=== PATIENT | male | born 2000 | race Caucasian/White ===

== ENCOUNTER 2024-03-28 14:20 | Outpatient (AMB) | payer OTHER, SELFPAY ==
--- NOTE | 2024-03-28 14:43 | MHC.PC.OV ---
Vital Signs 03/28/24 14:45 Height 5 ft 11.65 in Weight 157 lb BMI 21.5 BP 120/78 Blood Pressure Location Lt brachial Position Sitting Pulse 85 Pulse Source Pulse Oximeter Temp 97.3 F Temp Source Temporal Artery Scan Pulse Oximetry (%) 95 Oxygen Delivery Method Room Air Intake Visit Reasons: establish care Intake Note: Patient is a new patient here to establish care for Wellness visit. Transferring care from unknown. Medical records have not been requested and have not received. Prison Officer Required: No Ring Barker Operator: Not Required per policy Accompanied by: Self / Same As Patient Allergies No Known Allergies Allergy (Verified 03/28/24 14:56) Medication List - Last Reconciled 03/28/24 by Kendall Pacheco PA-C No Known Home Meds Tobacco use date assessed: 03/28/24 Dental Screening Dental Screen Date: 03/28/24 Did you have a dental visit in the last 12 months?: Yes Did you have a dental problem in the last 6 months where you did not have access to dental care?: No Was dental information given to patient?: Patient has dentist HPI establish care HPI Details The patient is a 23-year-old male presenting today for a new patient visit.. He also request for medical clearance after a previous occurrence of elevated liver enzymes. 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 He was noted to have a elevated liver enzyme during a previous blood draw, which the patient attributes to alcohol consumption before the test. The patient's liver enzyme levels were reported as significantly elevated, with AST at 548 and ALT at 210, which returned to normal levels on subsequent reevaluation. No prior chest pain, shortness of breath, family history of heart disease, or cancer diagnosis was reported. [facility] Surgical History History of testicular surgery Social History (Updated 03/28/24 @ 14:59 by Kendall Pacheco PA-C) Housing: House Alcohol intake: current Alcohol intake frequency: a few times a month Alcohol type: beer Patient Tobacco Use Status: Never used Tobacco e-Cigarette/Vaping Use: Never Used Second Hand Smoke Exposure: No service: Yes ([employer]) Current occupational status: employed Current occupation: [employer] Cognitive needs: No Hearing needs: No Vision needs: No Questionnaire PHQ-9 Over the last 2 weeks, how often have you been bothered by any of the following problems? 1. Little interest or pleasure in doing things: not at all 2. Feeling down, depressed, or hopeless: not at all 3. Trouble falling or staying asleep, or sleeping too much: not at all 4. Feeling tired or having little energy: not at all 5. Poor appetite or overeating: not at all 6. Feeling bad about yourself - or that you are a failure or have let yourself or your family down: not at all 7. Trouble concentrating on things, such as reading the newspaper or watching television: not at all 8. Moving or speaking so slowly that other people could have noticed. Or the opposite - being so fidgety or restless that you have been moving around a lot more than usual: not at all 9. Thoughts that you would be better off or of hurting yourself in some way: not at all Total score: 0 Depression Screening Interpretation: Negative Depression Screening Done: Yes 57716 - PHQ-9 Billing: Yes Source: Developed by Drs. Vlad Gibson, Blanca Hensley, Odin Tidwell and colleagues, with an educational ryan from [employer]. Thrive Questionnaire Date Thrive assessed: 03/22/24 I am a: Patient What is your living situation today?: I have a steady place to live Within the past 12 months, did the food you bought not last and you didn't have the money to get more?: Never true Within the past 12 months, did you worry whether your food would run out before you got money to buy more?: Never true Do you have trouble paying for medicines?: No Do you have trouble getting transportation to medical appointments?: No Do you have trouble paying your heating and electricity bill?: No Do you have trouble taking care of your child, family member or friend?: No Do you have trouble with day-to-day activities such as bathing, preparing meals, shopping, managing finances, etc.?: No Are you currently unemployed and looking for a job?: No Are you interested in more education?: No Please select the resources that you would like help with: None Currently or been in a relationship where the following occur: No concerns reported THRIVE Score: 0 AUDIT C Alcohol Use Questionnaire (AUDIT-C) 1. How often do you have a drink containing alcohol?: 2-4 times a month 2. How many drinks containing alcohol do you have on a typical day when you are drinking?: 1 or 2 3. How often do you have six or more drinks on one occasion?: Never Total Score: 2 VERO-7 AMB Questionnaire VERO-7 Date VERO - 7 assessed: 03/28/24 Feeling nervous, anxious, or on edge: 0 = Not at all Not being able to stop or control worryin = Not at all Worrying too much about different things: 0 = Not at all Trouble relaxin = Not at all Being so restless that it is hard to sit still: 0 = Not at all Becoming easily annoyed or irritable: 0 = Not at all Feeling afraid as if something awful might happen: 0 = Not at all Total VERO-7 score (0-4 normal; 5-9 mild; 10-14 moderate; 15-21 severe): 0 Source: Developed by Drs. Vlad Gibson, Blanca Hensley, Odin Tidwell and colleagues, with an educational ryan from [employer]. VERO-7 Assessment Billing VERO-7 Assessment Tool: VERO-7 Assessment 01228 Review of Systems Const Denies headache(s) Eyes Denies loss of vision ENT Denies vertigo, Denies dizziness, Denies headache(s) and Denies sore throat Card Denies chest pain, Denies leg edema and Denies lightheadedness Resp Denies cough, Denies hemoptysis and Denies wheezing GI Denies abdominal pain, Denies melena, Denies constipation, Denies diarrhea and Denies vomiting Denies dysuria, Denies urinary frequency and Denies urinary urgency Musc Denies arthralgias, Denies joint swelling, Denies numbness and Denies tingling Neuro Denies Abnormal speech present, Denies behavioral changes, Denies vertigo, Denies dizziness, Denies headache(s), Denies loss of vision, Denies memory loss, Denies numbness and Denies tingling Psych Denies anxiety, Denies behavioral changes, Denies depression, Denies memory loss and Denies panic attacks Rolo/Lymph Denies easy bleeding and Denies easy bruising Aller/Immun Denies wheezing Physical exam (Primary Care) Vital Signs: Last Vital Signs Temp 97.3 F 03/28/24 14:45 Pulse 85 03/28/24 14:45 BP 120/78 03/28/24 14:45 Pulse Ox 95 03/28/24 14:45 Oxygen Delivery Method Room Air 03/28/24 14:45 BMI result Body Mass Index 21.5 Tobacco/Smoking Status: Tobacco use Status Tobacco use date assessed 03/28/24 03/28/24 14:51 Patient Tobacco Use Status Never used Tobacco 03/28/24 14:59 e-Cigarette/Vaping Use Never Used 03/28/24 14:59 PHQ-9: PHQ-9 Score PHQ-9: Total score 0 03/28/24 14:59 Depression Screening Interpretation: Negative Thrive Assessment: Date of Thrive Assessment Date Thrive assessed 03/22/24 03/28/24 14:51 Currently or been in a relationship where the following occur: No concerns reported Const General: healthy appearing, no acute distress, alert and awake Nutritional Appearance: well nourished Orientation/consciousness: oriented to person, oriented to place and oriented to time HENMT Ears: TM's normal bilaterally General nose exam: Normal nasal mucous membranes and turbinates present Eyes Conjunctivae: conjunctivae normal Sclerae: sclerae normal Pupils: Equal, round and reactive pupils present Neck Neck: Yes no lymphadenopathy and Yes no JVD Thyroid: Thyroid normal Carotids: no bruits Resp Effort & Inspection: normal respiratory effort and not tachypneic Auscultation: no crackles, no rales, no rhonchi and no wheezes Cardio Rate: regular rate Rhythm: regular rhythm Heart sounds: no murmurs and normal S1 and S2 GI Palpation (GI): Soft to palpation, nontender, no hepatomegaly and no splenomegaly Auscultation: normal bowel sounds Skin General skin exam: no rashes or lesions noted and dry skin Neuro General: oriented to person, oriented to place and oriented to time Cranial nerves: Yes Equal, round and reactive pupils present Speech: No Abnormal speech present Gait exam (Neuro): Normal gait present Motor exam (neuro): no tremor noted Extrem Right upper extremity: full ROM Left upper extremity: full ROM Right lower extremity: full ROM; no edema Left lower extremity: full ROM; no edema Psych Mental Status: mental status grossly normal Speech and movement: Normal speech and movement present Affect: normal affect Attitude: cooperative Thought process: Normal thought process present Coding Level of Care Code New Pt Level 4 (07519) Diagnoses Elevated liver enzymes R74.8 Screening for diabetes mellitus (DM) Z13.1 Additional Codes PHQ-9 - 92655 - PHQ-9 Billing: Yes ([id number]) VERO-7 Assessment Billing - VERO-7 Assessment Tool: VERO-7 Assessment 38681 ([id number]) Assessment & Plan Assessment & Plan (1) Elevated liver enzymes: Code(s): R74.8 - Abnormal levels of other serum enzymes Category: Medical Plan: I discussed with the patient the resolution of his previously elevated liver enzymes and the importance of fasting prior to repeat testing. We reviewed the need for obtaining a clearance letter for the [employer], contingent upon normal laboratory findings He will be applying to be in the [employer] and needs to be medically cleared from a primary care physician. (2) Screening for diabetes mellitus (DM): Code(s): Z13.1 - Encounter for screening for diabetes mellitus Category: Medical Plan: As above
[2024-03-28 14:45] VITALS: BP 120/78; PULSE 85; TEMP 36.3; O2SAT 95; BMI 21.5
--- OUTSIDE RECORDS SUMMARY | 2024-03-28 15:36 | XMS_ITS | Encounter Summary ---
Author Organization [facility] Address [address] [place] [phone] Phone Care Team Providers Care Stitcher Tape Controlled Machine Name Role Phone Unavailable Primary Care Provider Unavailabl e Encounter Details Date Type Department Care Team (Late st Contact Info) Description 06/18/2014 Documentation [facility] [place] Family Medicine [address] [place], [place] [id number] Family Medicine, Physician [address], [place] [address] Social History Tobacco Use Types Packs/Day Years Used Date Smoking Tobacco: Never Assessed Sex and Gender Information Value Date Recorded Sex Assigned at Not on file Legal Sex Male 4:56 PM EDT Gender Identity Not on file Sexual Orientation Not on file documented as of this encounter Plan of Treatment Not on file documented as of this encounter Visit Diagnoses Not on filedocumented in this encounter
--- OUTSIDE RECORDS SUMMARY | 2024-03-28 15:36 | XMS_ITS | Clinical Summary ---
Author Organization [facility] Address [address] [place] [address] Care Team Providers Care Laboratory Animal Facility Supervisor Name Role Phone Patient, Has No Pcp Or Ref Primary Care Provider Unavailable Allergies No known active allergies Medications No known medications Active Problems No known active problems Resolved Problems Problem Noted Date Diagnosed Date Resolved Date Left-sided weakness 10/21/2022 10/23/19 23 Weakness 10/20/2022 10/22/2022 Assessment & Plan (10/20/2022 6:16 PM EDT): 22 year old male with no reported PMH. Presents with acute onset left sided weakness in the setting of recent strenuous exercise during training. NIH 3 for left sided drift and sensation deficit. TNK deferred by patient following risk benefit discussion. Given patient would be at risk for stroke due to presentation with strenuous exercise initially recommended load with 325 mg of Aspirin, 300 mg Plavix. Upon re-evaluation, the neurology team, thought that the etiology of presentation likely related to dehydration, exertional related fatigue with some functional component noted as well. Lower concern for stroke and no need for additional antiplatelet therapy. - If no improvement following 24 hours may obtain repeat CTH -Brain MRI -spot EEG Non-traumatic rhabdomyolysis 10/20/2022 10/22/2022 Assessment & Plan (10/20/2022 6:19 PM EDT): Pt presenting with CK of 1690, some exertional muscle pain, in the setting of dehydration and intense physical exercise. Concerning for exertional rhabdomyolysis. CK trending down. Received 1L of NS in the ED. 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 He denies any weakness with these past episodes and they have been decreasing in frequency, now happening every couple of months. He would have intact but altered consciousness during these episodes, no aura symptoms. He reports that he has not been formally evaluated for these issues and does not have any known associated diagnoses. He has a cousin who had unknown heart disease and multiple strokes as a high school student. -EKG -Telemetry monitoring -TTE Hyponatremia 10/20/2022 10/22/2022 Assessment & Plan (10/20/2022 6:11 PM EDT): Pt presented after intense physical training. He had a Na of 133, likely a result of hypovolemic hyponatremia. BUN/Cr of 21/1.18 with an unknown baseline. Pt received 1L of NS bolus in the ED. -Follow up BMP Social History Tobacco Use Types Packs/Day Years Used Date Smoking Tobacco: Never Smokeless Tobacco: Never Alcohol Use Standard Drinks/Week Comments Never 0 (1 standard drink = 0.6 oz pur e alcohol) Sex and Gender Information Value Date Recorded Sex Assigned at Male 10/24/2022 8:40 AM EDT Legal Sex Male 8:44 AM EDT Gender Identity Male 10/24/2022 8:40 AM EDT Sexual Orientation Not on file Last Filed Vital Signs Vital Sign Reading Time Taken Comments Blood Pressure 106/61 10/22/2022 3:28 AM EDT Pulse 60 10/22/2022 3:28 AM EDT Temperature 36.4 ??C (97.6 ??F) 10/22/2022 3:28 AM ED T Respiratory Rate 17 10/22/2022 3:28 AM EDT Oxygen Saturation 97% 10/22/2022 3:28 AM EDT Inhaled Oxygen Concentration - - Weight 77.1 kg (170 lb) 10/21/2022 4:15 AM EDT Height 185.4 cm (6' 1 ) 10/21/2022 4:15 AM EDT Body Mass Index 22.43 10/21/2022 4:15 AM EDT Plan of Treatment Health Maintenance Due Date Last Done Comments HIV Screening 1998 Hepatitis C Screening 1998 Varicella Vaccines (1 of 2 - 13+ 2-dose series) 10/04/2011 HPV Vaccines (1 - Male 3-dos e series) 2013 Hepatitis B Vaccines (1 of 3 - 19+ 3-dose series) 2017 DTaP,Tdap,and Td Vaccines (1 - Tdap) 2020 COVID-19 Vaccine (1 - 2023-2 5 season) 2023 Influenza Vaccine (#1) 2023 Alcohol/Substance Use Screening 02/07/2024 Depression Screening and Follow-Up 02/07/2024 Social Drivers of Health Veronica ual Screening 02/07/2024 RSV Vaccine (60+ years old a nd patients) (1 - 1-dose 75+ series) 2073 Pneumococcal Vaccine: Pediat scotty (0-5 Years) and At-Risk Patients (6-50 Years) Aged Out No longer eligible b ased on patient's age to complete this topic Insurance WORKERS COMPENSATION Advance Directives * Full Code (Latest Code Status on File) Date Activated Date Inactivated Comments 10/20/2022 2:45 PM 10/22/2022 2:10 PM Care Teams Laboratory Animal Facility Supervisor Relationship Specialty Start Date End Date Patient, Has No Pcp Or Ref DO NOT EDIT THIS RECORD VIA PROVIDER ON THE FLY PCP - General Cutlery Grinder 10/20/22
--- OUTSIDE RECORDS SUMMARY | 2024-03-28 15:36 | XMS_ITS | Encounter Summary ---
Author Organization [facility] Address [address] [place] [phone] Phone Care Team Providers Care Capacitor Inspector Name Role Phone Unavailable Primary Care Provider Unavailabl e Encounter Details Date Type Department Care Team (Late st Contact Info) Description 08/27/2009 Documentation [facility] [place] Family Medicine [address] [place], [place] [id number] Family Medicine, Physician [address], [place] [phone] Social History Tobacco Use Types Packs/Day Years [...]
--- OUTSIDE RECORDS SUMMARY | 2024-03-28 15:36 | XMS_ITS | Encounter Summary ---
Author Organization [facility] Address [address] [place] [phone] Phone Care Team Providers Care Cabinet Finisher Name Role Phone Unavailable Primary Care Provider Unavailabl e Encounter Details Date Type Department Care Team (Late st Contact Info) Description 09/26/2013 [place] [facility] [place] [address] [place], [place] [id number] Family Medicine, Physician [address], [place] [phone] Social History Tobacco Use Types Packs/Day Years [...]
--- OUTSIDE RECORDS SUMMARY | 2024-03-28 15:36 | XMS_ITS | Referral Summary ---
Author Organization [facility] Address [address] [place] [address] Care Team Providers Care Fisher Hoop Net Name Role Phone Patient, Has No Pcp [...] 10/21/2022 4:15 AM EDT Plan of Treatment Not on file Insurance WORKERS COMPENSATION Advance Directives * Full Code (Latest Code Status on File) Date Activated Date Inactivated Comments 10/20/2022 2:45 PM 10/22/2022 2:10 PM Care Teams Fisher Hoop Net Relationship Specialty Start Date End Date Patient, Has No Pcp Or Ref DO NOT EDIT THIS RECORD VIA PROVIDER ON THE FLY PCP - General Area Counselor 10/20/22
--- OUTSIDE RECORDS SUMMARY | 2024-03-28 15:36 | XMS_ITS | Encounter Summary ---
Author Organization [facility] Address [address] [place] [phone] Phone Care Team Providers Care Demonstrator Sales Name Role Phone Unavailable Primary Care Provider Unavailabl e Encounter Details Date Type Department Care Team (Late st Contact Info) Description 09/22/2016 Conversion Encounter [facility] - [address] [address] Social History Tobacco Use Types Packs/Day Years Used Date Smoking Tobacco: Never Comments:Never smoker Sex and Gender Information Value Date Recorded Sex Assigned at Not on file Legal Sex Male 4:56 PM EDT Gender Identity Not on file Sexual Orientation Not on file documented as of this encounter Plan of Treatment Not on file documented as of this encounter Visit Diagnoses Not on filedocumented in this encounter
--- OUTSIDE RECORDS SUMMARY | 2024-03-28 15:36 | XMS_ITS | Clinical Summary ---
Author Organization [facility] Address [address] [place] [phone] Phone Care Team Providers Care Habitat Management Coordinator Name Role Phone Unavailable Primary Care Provider Unavailabl e Immunizations Immunization Administration Dates Next Due DTaP 5 10/17/2002, 1,04/09/1999, 999,1998 H1N1 02/26/2009 HPV, Quadrivalent 06/06/2012,08/24/2011,06/06/19 12 Hep A, ped/adol 06/17/2014,06/12/2013 Hep B, ped/adol 01/11/2000,07/06/1999,04/09/1999 Hib (PRP-T) 01/11/2000, 0,02/04/1999, 999 IPV 10/17/2002, 1,02/04/1999, 999 Influenza Split 03/01/2010 Influenza, injectable, quadrivalent 12/09/2015 Influenza, injectable, trivalent 02/19/2008,01/06 Influenza, intranasal, quadrivalent 02/19/2015 MMR 10/17/2002,09/30/1999 Meningococcal Conj (Menactra) MCV4P 12/09/2015,0 06/06/2011 Pneumococcal Conjugate 05/16/2000,01/11/2000 Tdap 06/06/2011 Varicella 02/19/2008,09/30/1999 Family History Relation Name Status Comments Father Alive Father: Alive a nd well Mother Mother: Migrain es Other No family histo ry of *Heart Disease, Family history of *Sudden /VT under 55, Family history of Asthma, No family history of *CVA/Stroke, No family history of *Dental caries Sister Alive Sister: Alive a nd well Social History Tobacco Use Types Packs/Day Years Used Date Smoking Tobacco: Never Comments:Never smoker Sex and Gender Information Value Date Recorded Sex Assigned at Not on file Legal Sex Male 4:56 PM EDT Gender Identity Not on file Sexual Orientation Not on file Last Filed Vital Signs Vital Sign Reading Time Taken Comments Blood Pressure 121/77 01/18/2016 12:00 AM EST Pulse 88 12/09/2015 12:00 AM EDT Temperature 37.4 ??C (99.4 ??F) 01/18/2016 12:[address] Respiratory Rate - - Oxygen Saturation - - Inhaled Oxygen Concentration - - Weight 62.6 kg (138 lb) 01/18/2016 12:00 AM EST Height 180.8 cm (5' 11.2 ) 01/18/2016 12:[address] Body Mass Index 19.14 01/18/2016 12:00 AM EST Plan of Treatment Health Maintenance Due Date Last Done Comments DTaP,Tdap,and Td Vaccines (7 - Td or Tdap) 06/05/2021 06/06/2011, 10/17/2002, 05/16/2000, Additional history exists Influenza Vaccines (#1) 2023 12/09/19 16, 02/19/2015, 03/01/2010, Additional history exists COVID-19 Vaccine ( season) 2023 HIB Vaccines Completed 01/11/2000, 04/1999, 02/04/1999, Additional history exists Hepatitis B Vaccines Completed 01/11/2000, 07/06/1999, 04/09/1999 Pneumococcal Vaccine Completed 05/16/2000, 01/11/20 00 IPV Vaccines Completed 10/17/2002, 05/07, 02/04/1999, Additional history exists MMR Vaccines Completed 10/17/2002, 09/30/1999 Varicella Vaccines Completed 02/19/2008, 09/30/1999 HPV Vaccines Completed 06/06/2012, 08/06, 06/06/2011 Hepatitis A Vaccines Completed 06/17/2014, 06/13/19 14 Meningococcal Vaccine Completed 12/09/2015, 012 Men B Vaccine Aged Out No longer nikhil hooper based on patient's age to complete this topic
--- OUTSIDE RECORDS SUMMARY | 2024-03-28 15:36 | XMS_ITS | Clinical Summary ---
Author Organization [facility] Address [address] [place] [address] Phone Care Team Providers Care Hose Cementer Name Role Phone [facility] Unavailable Unavailable Reason for Visit and Chief Complaint New Patient Plan of Treatment No Plan of Treatment Recorded Assessments Includes: Assessments from this encounter No Assessments Recorded Medical Equipment - Implanted Devices Includes: Current Devices No Medical Equipment Recorded Medications Administered Includes: Administered Medications from this encounter No Administered Medications Recorded Results Includes: Results discussed during this encounter No Results Recorded For Specified Dates History of Present Illness Includes: History of Present Illness from this encounter No History of Present Illness Recorded Social History No Social History Recorded - Smoking Status Unknown Medical History Includes: Medical History addressed during this encounter No Medical History Recorded Family History Includes: Family History addressed during this encounter No Family History Recorded Review of Systems Includes: Review of Systems from this encounter No Review of Systems Recorded Mental Status Includes: Mental Status from this encounter No Mental Status Recorded Functional Status Includes: Functional Status from this encounter No Functional Status Recorded Physical Exam Includes: Physical Exam from this encounter No Physical Exam Recorded Insurance Includes: Active Insurance Policies Plan Name Member ID Group # Subscriber Relationship Effect kelvin Dates 1 - Prime [id number] Mike Simpson Self Clinical Notes Includes: Clinical Notes from this encounter No Clinical Notes Recorded
--- OUTSIDE RECORDS SUMMARY | 2024-03-28 15:36 | XMS_ITS | Continuity of Care Document ---
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 It does not include entries that were removed or entered in error. Problem Status Onset Date Problem Type Date of Resolution Comments Source No Known Problems Active Condition 1586V-YH-LYN- 59th QBB-OPZTY-Bet malick Medications Combined list of outpatient medications from Department of Defense and Veterans Affairs facilities.Medications provided include 1) outpatient medications from the last 15 months, and 2) patient-reported medications. Medication Details Route Status Patient Instructions Prescription Expires Prescription Number Last Dispense Date Ordering Provider Order Date Order Qty Source Acetaminoph en Extra Strength Gelcaps 500 mg 2 tab(s), Oral, every 6 hr, PRN pain (mild), # 24 tab(s), 0 total refill(s ), Maintena nce, Pharmacy : [facility] Oral (given by mouth) Ordered 24.0 0117A-A F-ASU-5 [facility] CETIRIZINE HCL (cetirizine HCl), 10 MG, TABLET, ORAL, 'S LAB, 500 ea. BOTTLE Active [id number] 2023 90 Pharmac y Data Transac tion Service Facilit y Cleocin T 1% topical gel 1 appl(s), Topical, BID, # 60 g, 0 total refill(s ), Maintena nce, dispense 2 tubes due to TDY, Pharmacy : [facility] Topica l (on the skin) Complet ed 10/02/2021 60.0 0117A-A F-ASU-5 9 [facility] clindamycin -benzoyl peroxide 1%-5% topical gel clindamy lisa-uri oyl peroxide 1%-5% topical gel Start Date: 04/06/20 Stop Date: 10/02/21 Status: Complete d Complet ed 10/02/2021 No Facilit y Access doxycycline hyclate 100 mg oral capsule 1 cap(s), Oral, BID, # 14 cap(s), 0 total refill(s ), Acute, 09/17/21 12:00:00 AM CDT, Pharmacy : [facility] Oral (given by mouth) Complet ed 09/17/2021 14.0 0117A-A F-ASU-5 [facility] ibuprofen 800 mg oral tablet 1 tab(s), Oral, every 8 hr, PRN pain (mild), # 24 tab(s), 0 total refill(s ), Sarahy ilaileen, Pharmacy : [facility] Oral (given by mouth) Ordered 24.0 0117A-A F-ASU-5 [facility] PENICILLIN V POTASSIUM (PENICILLIN V POTASSIUM), 500 MG, TABLET, ORAL, [employer] PHARMA L, 500 ea. BOTTLE Active [id number] 4 2023 30 Pharmac y Data Transac tion Service Facilit y Valtrex 1 g oral tablet 1 tab(s), Oral, BID, # 14 tab(s), 0 total refill(s ), Acute, 09/11/21 12:00:00 AM CDT, Pharmacy : [facility] Oral (given by mouth) Complet ed 09/11/2021 14.0 0117A-A F-ASU-5 [facility] Allergies, Adverse Reactions, Alerts Combined list of allergies from Department of Defense and Veterans Affairs facilities. It does not include entries that were removed or entered in error. Substance Category Reaction Severity Reaction type Status Date Reported Comments Source No Known Allergies Drug allergy (disorder) active 04/24/2018 [place] [address] Immunizations Combined list of available immunizations from the Department of Defense and Veterans Affairs facilities. Immunization Series Date Given Administered By Site Reaction Lot Number CVX Code Drug Manager Technical Training Status Comments Source Influenza, injectable, quadrivalent, preservative free [id number] (SKB) complet ed Influenza , injectabl e, quadrival ent, preservat kelvin free DoD influenza, injectable, quadrivalent, contains preservative 4 2020 [id number] [facility] influenza , injectabl e, quadrival ent, contains preservat kelvin DoD COVID Vaccine Moderna 2020 [id number] complet ed COVID Vaccine Moderna 07/17/20 Given Ambulat ory Pharmac y SARS-COV-2 (COVID-19) vaccine, mRNA, spike protein, LNP, preservative free, 100 mcg or 50 mcg dose 2 2020 [id number] Moderna [employer] Inc. (MOD) complet ed SARS-COV- 2 (COVID-19 ) vaccine, mRNA, spike protein, LNP, preservat kelvin free, 100 mcg or 50 mcg dose DoD COVID Vaccine Moderna 2020 [id number] 207 complet ed COVID Vaccine Moderna 06/19/20 Given Ambulat ory Pharmac y SARS-COV-2 (COVID-19) vaccine, mRNA, spike protein, LNP, preservative free, 100 mcg or 50 mcg dose 1 2020 [id number] 207 Moderna [employer]. (MOD) complet ed SARS-COV- 2 (COVID-19 ) vaccine, mRNA, spike protein, LNP, preservat kelvin free, 100 mcg or 50 mcg dose DoD human papilloma virus vaccine, quadrivalent 0 2019 62 () Not Given human papilloma virus vaccine, quadrival ent DoD influenza, injectable, quadrivalent- pf 2019 [id number] 150 Seqirus complet ed influenza , injectabl e, quadrival ent-pf 12/27/19 Given Ambulat ory Pharmac y Influenza, injectable, quadrivalent, preservative free 1 2019 [id number] 150 Seqirus (SEQ) complet ed Influenza , injectabl e, quadrival ent, preservat kelvin free DoD hepatitis B adult vaccine 2019 [id number] 43 GlaxoSmithKli ne complet ed hepatitis B adult vaccine 02/15/19 Given Ambulat ory Pharmac y hepatitis B vaccine, adult dosage 3 2019 [id number] Smithine (SKB) complet ed hepatitis B vaccine, adult dosage DoD influenza, injectable, quadrivalent- pf 2018 [id number] 150 complet ed influenza , injectabl e, quadrival ent-pf 12/05/18 Given Ambulat ory Pharmac y Influenza, injectable, quadrivalent, preservative free 1 2018 150 Transcribed (TRS) complet ed Influenza , injectabl e, quadrival ent, preservat kelvin free DoD varicella virus vaccine 2018 [id number] Merck & Company Inc complet ed varicella virus vaccine 06/11/18 Given Ambulat ory Pharmac y hepatitis B pediatric/ado lescent 2018 [id number] 08 GlaxoSmithKli ne complet ed hepatitis B pediatric /adolesce nt 06/11/18 Given Ambulat ory Pharmac y hepatitis B vaccine, pediatric or pediatric/ado lescent dosage 1 2018 [id number] 08 SmithKline (SKB) complet ed hepatitis B vaccine, pediatric or pediatric /adolesce nt dosage DoD varicella virus vaccine 1 2018 [id number] 21 Merck (MSD) complet ed varicella virus vaccine DoD varicella virus vaccine 2018 [id number] 21 Merck & Company Inc complet ed varicella virus vaccine 04/24/18 Given Ambulat ory Pharmac y hepatitis B pediatric/ado lescent 2018 [id number] 08 GlaxoSmithKli ne complet ed hepatitis B pediatric /adolesce nt 04/24/18 Given Ambulat ory Pharmac y measles/mumps /rubella virus vaccine 2018 [id number] 03 Merck & Company Inc complet ed measles/m umps/rube lla virus vaccine 04/24/18 Given Ambulat ory Pharmac y measles, mumps and rubella virus vaccine 1 2018 [id number] 03 Merck (MSD) complet ed measles, mumps and rubella virus vaccine DoD hepatitis B vaccine, pediatric or pediatric/ado lescent dosage 1 2018 [id number] 08 SmithKline (SKB) complet ed hepatitis B vaccine, pediatric or pediatric /adolesce nt dosage DoD varicella virus vaccine 1 2018 [id number] 21 Merck (MSD) complet ed varicella virus vaccine DoD influenza, injectable, quadrivalent- pf 2018 [id number] 150 GlaxoSmithKli ne complet ed influenza , injectabl e, quadrival ent-pf 04/19/18 Given Ambulat ory Pharmac y meningococcal A,C,Y,W-135 (MCV4P) 2018 [id number] 114 sanofi pasteur complet ed meningoco ccal A,C,Y,W-1 35 (MCV4P) 04/19/18 Given Ambulat ory Pharmac y poliovirus vaccine, inactivated 2018 10 sanofi pasteur complet ed polioviru s vaccine, inactivat ed 04/19/18 Given Ambulat ory Pharmac y adenovirus vaccine, live 2018 [id number] 143 Teva Pharmaceutica complet ed adenoviru s vaccine, live 04/19/18 Given Ambulat ory Pharmac y tetanus, diphtheria, acellular pertu is 2018 [id number] 115 Lexity mo complet ed tetanus, diphtheri a, acellular pertussis 04/19/18 Given Ambulat ory Pharmac y poliovirus vaccine, inactivated 1 2018 10 Sanofi Pasteur (PMC) complet ed polioviru s vaccine, inactivat ed DoD meningococcal polysaccharid e (groups A, C, Y and W-135) diphtheria toxoid conjugate vaccine (MCV4P) 1 2018 [id number] 114 Sanofi Pasteur (PMC) complet ed meningoco ccal polysacch aride (groups A, C, Y and W-135) diphtheri a toxoid conjugate vaccine (MCV4P) DoD tetanus toxoid, reduced diphtheria toxoid, and acellular pertu is vaccine, adsorbed 1 2018 [id number] 115 AorTx (SKB) complet ed tetanus toxoid, reduced diphtheri a toxoid, and acellular pertussis vaccine, adsorbed DoD Adenovirus, type 4 and type 7, live, oral 1 2018 [id number] 143 [facility] (BRR) complet ed Adenoviru s, type 4 and type 7, live, oral DoD Influenza, injectable, quadrivalent, preservative free 1 2018 [id number] 150 AorTx (SKB) complet ed Influenza , injectabl e, quadrival ent, preservat kelvin free DoD measles virus vaccine 0 2018 05 () Not Given measles virus vaccine DoD mumps virus vaccine 0 2018 07 () Not Given mumps virus vaccine DoD hepatitis A vaccine, adult dosage 0 2018 52 () Not Given hepatitis A vaccine, adult dosage DoD Results Combined list of recent chemistry, hematology and other laboratory results from Department of Defense and Veterans Affairs, ranging from 15 months to all on record, depending upon the facility. Order Name Results Value Reference Range Date Interpretation Specimen Comments Source Infectiou s Disease Herpes Simplex 1 IgG Negative 2 *NA* (09/04/21 4:29 PM) 09/04 Interpretiv e Data: Negative: No HSV-1 IgG antibodies detected. Patient is presumed not to have had a previous HSV-1 infection. Equivocal: Equivocal result: obtain an additional sample for re-testing. Reactive: IgG antibody to HSV-1 detected. The performance of this test has not been established for us in a pediatric population, neonates, or immunocompr omised patients. This test is not, in and of itself, diagnostic for herpes simplex infection and assay results should only be interpreted in the context of other laboratory findings and the total clinical presentatio n of the patient. Samples collected too early in the course of the infection may not have detectable levels of HSV IgG. These results cannot differentia te between recent and past infections, negative HSV-2 antibody results could be due to recent infections attributed to slow time to seroconvers ion of the gG-2 response. A positive result does not rule out primary or non-primary episodes. HSV serology cannot distinguish genital from non-genial infections. False positive results may occur. Repeat testing or testing with a different device may be indicated in some settings e.g., patients with low likelihood of HSV infection. For performance or methodology questions, please contact Immunology department at [phone]. [id number] [facility] Infectiou s Disease Herpes Simplex 2 IgG Negative 3 *NA* (09/04/21 4:29 PM) 09/04 Interpretiv e Data: Negative: No HSV-2 IgG antibodies detected. Patient is presumed not to have had a previous HSV-2 infection. Equivocal: Equivocal result: obtain an additional sample for re-testing. Reactive: IgG antibody to HSV-2 detected The performance of this test has not been established for us in a pediatric population, neonates, or immunocompr omised patients. This test is not, in and of itself, diagnostic for herpes simplex infection and assay results should only be interpreted in the context of other laboratory findings and the total clinical presentatio n of the patient. Samples collected too early in the course of the infection may not have detectable levels of HSV IgG. These results cannot differentia te between recent and past infections, negative HSV-2 antibody results could be due to recent infections attributed to slow time to seroconvers ion of the gG-2 response. A positive result does not rule out primary or non-primary episodes. HSV serology cannot distinguish genital from non-genial infections. False positive results may occur. Repeat testing or testing with a different device may be indicated in some settings e.g., patients with low likelihood of HSV infection. For performance or methodology questions, please contact Immunology department at [phone]. [id number]-R [facility] Molecular Infectiou s Disease GC NAAT Negative (09/04/21 2:48 PM) 09/04 N 0117A-A F-ASU-5 9th [facility] [place] Molecular Infectiou s Disease Chlamydia NAAT Positive *ABN* (09/04/21 2:48 PM) 09/04 A 0117A-A F-ASU-5 9th [facility] [place] Urinalysi s UA Micro Ind? Not Indicate d *NA* (09/04/21 2:48 PM) 09/04 0117A-A F-ASU-5 9th [facility] [place] Urinalysi s UA Color Yellow *NA* (09/04/21 2:48 PM) 09/04 0117A-A F-ASU-5 9th [facility] [place] Urinalysi s UA Clarity Clear (09/04/21 2:48 PM) 09/04 N 0117A-A F-ASU-5 9th [facility] [place] Urinalysi s UA Glucose Negative (09/04/21 2:48 PM) 09/04 N 0117A-A F-ASU-5 9th [facility] [place] Urinalysi s UA Bili Negative (09/04/21 2:48 PM) 09/04 N 0117A-A F-ASU-5 9th [facility] [place] Urinalysi s UA Ketones Negative (09/04/21 2:48 PM) 09/04 N 0117A-A F-ASU-5 9th [facility] [place] Urinalysi s UA Spec Dalton <=1.005 1.003 - 1.030 09/04 0117A-A F-ASU-5 9th [facility] [place] Urinalysi s UA Blood Negative (09/04/21 2:48 PM) 09/04 N 0117A-A F-ASU-5 9th [facility] [place] Urinalysi s UA pH 6.5 1 (09/04/21 2:48 PM) 5.0 - 7.0 09/04 N Interpretiv e Data: Normal Low = 5 Normal High = 7 Review High = >=7.5 0117A-A F-ASU-5 9th [facility] [place] Urinalysi s UA Protein Negative (09/04/21 2:48 PM) 09/04 N 0117A-A F-ASU-5 9th [facility] [place] Urinalysi s UA Urobilinoge n 0.2 E.U./dL 0.2 - 1.0.. 09/04 N 0117A-A F-ASU-5 9th [facility] [place] Urinalysi s UA Nitrite Negative (09/04/21 2:48 PM) 09/04 N 0117A-A F-ASU-5 9th [facility] [place] Urinalysi s UA Leuk Esterase Negative (09/04/21 2:48 PM) 09/04 N 0117A-A F-ASU-5 9th [facility] [place] Vital Signs Combined list of inpatient and outpatient Vital Signs from Department of Defense and Veterans Affairs, ranging from 12 months to all on record, depending upon the facility. Vital Sign Value Date Comments Source Peripheral Pulse Rate 64 bpm 09/04/2021 22:19:00 8976L-OO-GDW-59th [facility] Respiratory Rate 16 br/min 09/04/2021 22:19:00 3353R-EM-YUL-59th [facility] Systolic Blood Pressure 139 mm[Hg] 09/04/2021 22:19:00 3614M-RE-VZN-59th [facility] Diastolic Blood Pressure 74 mm[Hg] 09/04/2021 22:19:00 2411Q-IU-RRN-59th [facility] Mean Arterial Pressure, Calc 96 mm[Hg] 09/04/2021 22:19:00 1486D-MM-NCW -59th [facility] Temperature Temporal Artery 36.9 Elisabeth 07/13/2021 19:46:00 5644A-HZ-ZUR -59th [facility] Systolic Blood Pressure 129 mm[Hg] 07/13/2021 19:46:00 1989E-OV-NFJ-59th [facility] Diastolic Blood Pressure 79 mm[Hg] 07/13/2021 19:46:00 9972Y-XA-FYL-59th [facility] Peripheral Pulse Rate 102 bpm 07/13/2021 19:46:00 4392T-DY-EFH-59th [facility] Respiratory Rate 18 br/min 07/13/2021 19:46:00 2152I-MF-TJN-59th [facility] Peripheral Pulse Rate 66 bpm 09/04/2021 21:25:00 3634K-PF-CRL-59th [facility] Respiratory Rate 16 br/min 09/04/2021 21:25:00 8559J-MK-MNW-59th [facility] Systolic Blood Pressure 133 mm[Hg] 09/04/2021 21:25:00 2427W-DW-BOX-59th [facility] Diastolic Blood Pressure 83 mm[Hg] 09/04/2021 21:25:00 0311U-ZQ-OXP-59th [facility] Mean Arterial Pressure, Calc 100 mm[Hg] 09/04/2021 21:25:00 2029M-SC-PZD -59th [facility] Temperature Temporal Artery 36.8 Elisabeth 09/04/2021 18:30:00 7439F-CQ-KIZ -59th IMS-KUHKR-Rqzjixlg Systolic Blood Pressure 148 mm[Hg] 09/04/2021 18:30:00 4338R-FR-GSN-59th DSB-HCJKE-Lwwnyuvm Diastolic Blood Pressure 96 mm[Hg] 09/04/2021 18:30:00 5352D-BN-QDY-59th RWP-KKLFW-Ldnejeph Peripheral Pulse Rate 81 bpm 09/04/2021 18:30:00 9515I-KM-RKM-59th HPA-NJFMI-Yklqijfw Respiratory Rate 16 br/min 09/04/2021 18:30:00 2710V-ZN-XDR-59th UFU-LITLK-Bdfjibjv Temperature Temporal Artery 36.6 Elisabeth 10/02/2021 23:55:00 7677U-UA-AOV -59th EAN-EJAFD-Vqmijcgb Systolic Blood Pressure 161 mm[Hg] 10/02/2021 23:55:00 5450H-RQ-LSJ-59th AXT-IDACB-Ugvcibtg Diastolic Blood Pressure 82 mm[Hg] 10/02/2021 23:55:00 1300I-SB-PAT-59th NSW-EBUUW-Xukmrpke Peripheral Pulse Rate 96 bpm 10/02/2021 23:55:00 8887R-RW-COR-59th HNR-LQUKI-Pejfucxn Respiratory Rate 16 br/min 10/02/2021 23:55:00 7318B-TF-CSI-59th LVB-UAIFA-Ozwvvbgf Encounters Combined list of: 1) Encounters from Department of Veterans Affairs facilities going backup to the last 18 months, not all VA inpatient encounters are included; 2) Encounters from the Department of Defense facilities going backup to 280 months. Location Location Details Encounter Type Encounter Number Reason For Visit Attending Provider ADM Date DC Date Status Disposition Source [place] [address](Hea ring Conservat ion, BMT) OUTPATIENT [id number] JACEK PITT 04/23 Released w/o Limitations [facility] [place] [place] [address](H earing Conserv ation, BMT) [place] [address]([facility] Stanislav Jones) OUTPATIENT [id number] Notes Entered by: CAITLYN QUINTERO 24 Apr 2018 1303 ------- ------- ------- ------- -- Strep prophyl axis CAITLYN QUINTERO 04/24 [facility]ased w/o Limitations [facility] [place] [address] Alonso Jones) [employer] OUTPATIENT [id number] Notes Entered by: MEDHAT BUI SA 24 Jul 2018 1526 ------- ------- ------- ------- -- OUTPROC FRAN LU 07/24 Released w/o Limitations [facility] [employer]([facility]) [place] [address](Opt ometry Clinic, [facility]) OUTPATIENT [id number] ROUTINE EYE EXAM PK PORTER 10/01 [facility]ased w/o Limitations [facility] [place] [address](O ptometr y Clinic, [facility]) [place] [address](Robert MEJIA) OUTPATIENT [id number] [facility]/ [phone] JOHN RAMOS 10/18 Released w/o Limitations [facility] [place] [address]([facility],Delroy d) [place] [address](Elva teresa [facility] F) OUTPATIENT [id number] SICKLE CELL APRIL MURO 12/06 Released w/o Limitations [facility] [place] [address](Wanda putnam [facility] Team [facility]) [place] [address](Elva teresa Op_Med Team D,[facility]) TELE CONSULT [id number] Notes Entered by: ELI CHUNG 14 Dec 2018 1136 ------- ------- ------- ------- -- FCR/VAN CK F/U APPT E.RDahiana [id number] EC/CA PEDRO CARVALHO 12/14 Referred for Appointment [facility] [place] [address]([place] Op_Med Team D,[facility] ) [place] [address]([facility] kland Op_Med Team D,[facility]) TELE CONSULT [id number] Notes Entered by: NIDHI CASE 18 Dec 2018 1311 ------- ------- ------- ------- -- FCR/VAN CK FU ER CONCUSS ION PH# [phone] SILVIO/PEDRO JURADO 12/18 Referred for Appointment [facility] [place] [address]([place] [facility]Med Team D,[facility] ) [facility], [place] [address]([facility] kland Op_Med Team D,[facility]) TELE CONSULT [id number] Notes Entered by: MICHELLE GARNER 19 Dec 2018 0854 ------- ------- ------- ------- -- jordan fierro cb# [phone] PEDRO FORTE 12/19 Referred for Appointment [facility] [place] [address]([place] [facility] D,[facility] ) [place] [address]([facility] kland Op_Med Team A,[facility]) OUTPATIENT [id number] ER F/U CONCUSS ION ANYA ROBERTS 12/19 Released w/o Limitations [facility] [place] [address]([place] Op_Med Team A,[facility] ) [place] [address]([facility] kland Op_Med Team D,[facility]) TELE CONSULT [id number] Notes Entered by: ZINA ROMAN 25 Dec 2018 0729 ------- ------- ------- ------- -- FCR/VAN CK. Fu concuss ion. [facility] [id number]. MJW/CAM O ROBIN HERNANDEZ 12/25 Referred for Appointment [facility] [place] [address]([place] [facility]Med Team D,[facility] ) [place] [address]([place] [facility]Med Team [facility]) OUTPATIENT [id number] F/U HEAD CONCUSS ION [place] 01/14 [facility]/o Limitations [facility] [place] [address]([place] [facility]_Med Team D,[facility] ) [place] [address]([place] [facility] D,[facility]) OUTPATIENT [id number] 4 Wk F/U; LastSee n10Dec [place] 02/11 Released w/o Limitations [facility] [place] [address]([place] [facility] D,[facility] ) [place] [address](All ergy, [facility]) OUTPATIENT [id number] Notes Entered by: Kimmie DWYER 15 Feb 2019 1449 ------- ------- ------- ------- -- SARITHA ALANIZ 02/15 Released w/o Limitations [facility] [place] [address](A llergy, [facility]) [place] [address](Epi demiology Dis [facility]) TELE CONSULT [id number] Notes Entered by: Kimmie HOLLINS 11 Jun 2019 1003 ------- ------- ------- ------- -- Patient notific ation of COVID-1 9 Lab Results MICHAEL HOLLINS 06/10 [facility] [place] [address](E pidemio logy Dis [facility]) [facility], [place] [address]([facility] demiology Dis [facility]) TELE CONSULT [id number] Notes Entered by: Kimmie HOLLINS 11 Jun 2019 1220 ------- ------- ------- ------- -- Patient notific ation of [facility]-1 9 Lab Results MICHAEL HOLLINS 06/10 [facility] [place] [address](E pidemio logy [facility]) [place] [address]([facility]) TELE CONSULT [id number] Notes Entered by: RENAN POLLOCK 11 Jun 2019 1226 ------- ------- ------- ------- -- [facility]- 9 Lab result RENAN POLLOCK B 06/10 Released to Self Care [facility], [place] [address](E pidem logy [facility]) [place] [address]([place] Op[facility]Med Team D,[facility]) OUTPATIENT [id number] Headach e and Nausea NAL/DKH Phone:[phone] [place] 06/12 Released w/o Limitations [facility] [place] [address]([place] [facility] D,[facility] ) [place] [address]([place] [facility] D,[facility]) OUTPATIENT [id number] lump on neck, chills, sweats. CONTACT NUMBER: [id number] NAL-NR [place] 06/16 Released w/o Limitations [facility] Treatme nt Facilit y, [place] [address]([place] [facility]Med [facility] D,[facility] ) [place] [address]([place] [facility]) TELE CONSULT [id number] Notes Entered by: PEPITO PEARCE 25 Sep 2019 1309 ------- ------- ------- ------- -- MED REFILL [id number] G BOBBYShadia OLAF ANYA Kimmie 09/24 [facility] [place] [address](Wanda putnam Op_Med Team D,[facility] ) [place] [address](BOM C,Robert) OUTPATIENT [id number] MHA/AIR FORCE/C B#[id number] JOHN RAMOS 09/25 [facility] w/o Limitations [facility] [place] [address](B [facility] Medical [facility] Medicine [facility]) TELE CONSULT [id number] Notes Entered by: SUSAN VAN 30 Mar 2020 1613 ------- ------- ------- ------- -- Appt line - Patient calling to ASHLEY Irizarry 03/30 Other Not Elsewhere Classified [facility] Medical [facility](F light Medicin e Clinic) [address] [place] [address]([facility]) TELE CONSULT [id number] Notes Entered by: AMILCAR MOONEY 31 Mar 2020 1623 ------- ------- ------- ------- -- REHAN - Note about topical med CORY MOONEY I 03/31 Other Not Elsewhere Classified [facility] Medical Group(A [facility]) [facility] Medicine [facility]) OUTPATIENT [id number] CARL CORRAL 04/01 Released w/o Limitations [address] [place] [address](F light Medicin e [facility]) [place] [address](AFN G 104 Med Sq-FM) TELE CONSULT [id number] MORIS CRAWFORD 05/05 [facility] [place] [address](A FNG 104 Med Sq-FM) [facility]) OUTPATIENT [id number] Virtual [facility] DEVAN BRIANNA COURTNEY 09/01 Released w/o Limitations [address] [place] [address](A ctive [facility]) [place] [address]([facility]) OUTPATIENT [id number] TCON/PH A [employer] NEELIMA [phone] SARITHA URIAS 09/10 Released w/o Limitations [facility] [place] [address]([facility]) [place] [address](AFN G 104 Med Sq-FM) OUTPATIENT [id number] Notes Entered by: JANNET REBOLLAR 17 Apr 2021 1430 ------- ------- ------- ------- -- Audiogr am LEW DUARTE 04/17 Released w/o Limitations [facility] [place] [address](A FNG 104 Med Sq-FM) [place] [address](AFN G 104 Med Sq-FM) OUTPATIENT [id number] Notes Entered by: JANNET REBOLLAR 18 Apr 2021 1251 ------- ------- ------- ------- -- Audiogr am/PHAQ LEW DUARTE 04/18 Released w/o Limitations [facility] [place] [address](A FNG 104 Med Sq-FM) [place] [address](AFN G 104 Med Sq-FM) OUTPATIENT [id number] Notes Entered by: VAN SPEARS 09 Apr 2022 1547 ------- ------- ------- ------- -- GRZEGORZQ TRACY SPEARS 04/09 Released w/o Limitations [facility] [place] [address](A FNG 104 Med Sq-FM) 8203R-104 ARA Care Not Rendered [id number] 04/22 Discharge Disposition: Home or Self Care 8203R-1 04 G 8203R-104 MDG Between Visit [id number] 08/07 Discharge Disposition: Home or Self Care 8203R-1 04 G 8203R-104 MDG Between Visit [id number] 08/24 Discharge Disposition: Home or Self Care 8203R-1 04 G 8203R-104 MDG Between Visit [id number] 12/28 Discharge Disposition: Home or Self Care 8203R-1 04 G 8203R-104 G Between Visit [id number] 01/09 Discharge Disposition: Home or Self Care 8203R-1 04 MDG Procedures Combined list of: 1) Procedures from Department of Veterans Affairs facilities going back up to thelast 18 months, not all VA non-surgical procedures are included; 2) All procedures from the Department of Defense facilities. Procedure Procedure Type Code Date Perfomer Comments Sourc e WAIVER SERVICES; NOT OTHERWISE SPECIFIED (NOS) 2020 DoD PURE TONE AUDIOMETRY (THRESHOLD); AIR ONLY 2021 DoD BRIEF EMOTIONAL/BEHAVIORA L ASSESSMENT (EG, DEPRESSION INVENTORY, ATTENTION-DEFICIT/H YPERACTIVITY DISORDER [ADHD] SCALE), WITH SCORING AND DOCUMENTATION, PER STANDARDIZED INSTRUMENT 2020 DoD BRIEF COMM TECH-BASE SERV,E.G. VIRT CHK-IN,BY PHYS/OTH QUAL HCP,RPT E&M SERV,PROV TO EST PT,NOT ORIG FRM REL E/M SERV PROV W/IN PREV 7DAY NOR LEAD TO E/M SRV/PX W/IN NEXT 24HR/SOON ADIEL; 5-10 MIN DISC 2019 DoD PSYCHIATRIC DIAGNOSTIC EVALUATION WITH MEDICAL SERVICES 2019 [facility] ELECTROCARDIOGRAM, ROUTINE ECG WITH AT LEAST 12 LEADS; WITH INTERPRETATION AND REPORT 2019 DoD WAIVER SERVICES; NOT OTHERWISE SPECIFIED (NOS) 2019 DoD WAIVER SERVICES; NOT OTHERWISE SPECIFIED (NOS) 2019 DoD INJECTION, ONDANSETRON HCL, PER 1 MG 2019 DoD IMMUNIZATION ADMINISTRATION (INCLUDES PERCUTANEOUS, INTRADERMAL, SUBCUTANEOUS, OR INTRAMUSCULAR INJECTIONS); EACH ADDITIONAL VACCINE (SINGLE OR COMBINATION VACCINE/TOXOID) 2019 [facility] INFUSION, NORMAL SALINE SOLUTION , 1000 CC 2018 [facility] COUNSELING AND DISCUSSION REGARDING ADVANCE DIRECTIVES OR END OF LIFE CARE PLANNING AND DECISIONS, WITH PATIENT AND/OR SURROGATE 2018 [facility] INTRODUCTION OF NEEDLE OR INTRACATHETER, VEIN 2018 [facility] ADMINISTRATION OF PATIENT-FOCUSED HEALTH RISK ASSESSMENT INSTRUMENT (EG, HEALTH HAZARD APPRAISAL) WITH SCORING AND DOCUMENTATION, PER STANDARDIZED INSTRUMENT 2018 [facility] DETERMINATION OF REFRACTIVE STATE 2018 [facility] PURE TONE AUDIOMETRY (THRESHOLD); AIR ONLY 2018 [facility] Determination Of Refractive State Determination Of Refractive State 52042 2018 PORTER, SEE S [facility] Ophthalmological New Patient Start Comprehensive Care Ophthalmological New Patient Start Comprehensive Care 19669 2018 PORTER, SEE S [facility] Threshold Audiogram (Pure Tone) Threshold Audiogram (Pure Tone) 23069 2018 JACEK PITT [facility] Internet Med Svc Qual Nonps Healthcare Prof Up To 7 Days Estab Patient Internet Med Sv Qual [facility] Healthcare Prof Up To 7 Days Estab Patient 26281 JOHN RAMOS [facility] Preventive Medicine Administration Of Health Risk Questionnaire Patient-Focused Preventive Medicine Administration Of Health Risk Questionnaire Patient-Focused 03091 JOHN RAMOS [facility] Counseling and discu ion regarding advance directives or end of life care planning and decisions, with patient and/or surrogate (list separately in addition to code for appropriate evaluation and management service) ANYA ROBERTS [facility] Hepatitis B Vaccine (Active) Adult Dosage Hepatitis B Vaccine (Active) Adult Dosage 32501 DAMIAN DWYER [facility] Influenza Split Virus Vaccine IM Preserv Free 0.25mL Dosage Trivalent Influenza Split Virus Vaccine IM Preserv Free 0.25mL Dosage Trivalent 05895 DAMIAN DWYER [facility] Immunization Administration By Injection, One Vaccine Immunization Administration By Injection, One Vaccine 94617 DAMIAN DWYER [facility] Immunization Administration By Injection, Each Additional Vaccine Immunization Administration By Injection, Each Additional Vaccine 18323 DAMIAN DWYER [facility] Waiver services; not otherwise specified (NOS) CASSIA HILL [facility] Psychiatric Diagnostic Evaluation Comprehensive Examination Interactive Psychiatric Diagnostic Evaluation Comprehensive Examination Interactive 87627 MIGUEL JOSHI [facility] Brief communication technology-based service, e.g. virtual check-in, by a physician or other qualified health care profe rebekah who can report evaluation and management services, provided to an established patient, not originating from a related E/M service provided within the previous 7 days nor leading to an E/M service or procedure within the next 24 hours or soonest available appointment; 5-10 minutes of medical discu ion JOHN RAMOS [facility] Psychometric Emotional / Behavioral A e ment Psychometric Emotional / Behavioral Assessment 95583 CECILIA URIAS AUDIT-C (5), PCL-C (0) & PHQ-8 (0) [facility] Threshold Audiogram (Pure Tone) Threshold Audiogram (Pure Tone) 62347 MANFRED LOVE [facility] Psychometric Emotional / Behavioral A e ment Psychometric Emotional / Behavioral Assessment 87237 BRIANNA HARTMAN [facility] No data available for this section Ambulato ry Pharmacy Social History Combined list of available smoking, tobacco, and other social history from Department of Defense and Veterans Affairs facilities. Social History Type Response Date Comment Sour e Male 12/03/2020 Ambulatory Pha rmacy This section is an empty social history section. DoD Tobacco Exposure to Secondha nd Smoke: No. Never-cigarette user Cigarette use:. Never-other tobacco user (not cigarettes) Other Tobacco use:. Ambulatory Pharmacy Sexual Orientation Ambula tory Pharmacy Gender identity Ambulator y Pharmacy Assessment and Plan Combined list of future care activities from Department of Defense and Veterans Affairs facilities (e.g., assessment and plan notes, appointments, orders, and referrals). Additional future care activities may be listed in the Plan of Care section. Result Assessment and Plan Date Source Assessment and Plan No data available for this section 03/28/2024 Ambulatory Pharmacy Functional Status Combined list of recent functional and cognitive assessments recorded at Department of Defense and Veterans Affairs (VA).VA Functional [place] Measurement (FIM) Scale: 1 = Total Assistance (Subject = 0% +), 2 = Maximal Assistance (Subject = 25% +), 3 = Moderate Assistance (Subject = 50% +), 4 = Minimal Assistance (Subject = 75% +), 5 = Supervision, 6 = Modified [place] (Device), 7 = Complete [place] (Timely, Safely). Assessment Date/Time Source Assessment Type Assessment Skill Assessment Score Assessment Details No data available for this section
--- OUTSIDE RECORDS SUMMARY | 2024-03-28 15:36 | XMS_ITS | Clinical Summary ---
Author Organization [facility] Address [address] [place] [address] Phone Care Team Providers Care Gas Flow Regulator Name Role Phone [facility] Unavailable Reason for Visit and Chief Complaint New Patient Plan of Treatment Pending Tests Order Diagnosis Results Due Ordering P nabeel Follow Up - Appointment PRN Stress f racture, right foot, initial encounter for fracture 05/26/22 Tracie Roa PA-C Last Documented On 3 8:29AM ; [facility] In House X-Rays - X-Rays Foot, right, 3 views ([id number]) Stress fracture, right foot, initial encounter for fracture 05/28/22 Tracie Roa PA-C Last Documented On 3 8:29AM ; [facility] Assessments Includes: Assessments from this encounter No Assessments Recorded Medical Equipment - Implanted Devices Includes: Current Devices No Medical Equipment Recorded Medications Administered Includes: Administered Medications from this encounter No Administered Medications Recorded Vital Signs Includes: Vital Signs from this encounter Vital Name 05/26/2022 07:59A Blood Pressure Sitting (mmHg) 143/79 Pulse Rate-Sitting (bpm) 77 Temp-Temporal 97.2 Height (in) 73 Weight (lb) 170 Body Mass Index 22.4 Body Surface Area 2 Oxygen Saturation (%) 99 Last Documented: On 05/26/2022 8:00AM ; [facility] Results Includes: Results discussed during this encounter [...] Exam Includes: Physical Exam from this encounter Encounters Encounter Provider Location Date Check-In Time Check-Out Time Diagnosis New Patient [facility], 8:20AM 8:28AM Insurance Includes: Active Insurance Policies Plan Name Member ID Group # Subscriber Relationship Effect kelvin Dates - Prime [id number] Mike Simpson Self Clinical Notes Includes: Clinical Notes from this encounter * Progress note Date Encounter Last Documented by 05/26/2022 New Patient Last documented on 05/26/2022; 8:29 AM, Tracie Díaz; [facility], Reason For Visit Chief complaint: Atraumatic right foot pain Date of injury: Pain since 05/16/2022 History of Present Illness: Patient is a 21-year-old male who is training for [employer] and reports 10 days of right foot pain. He was evaluated at urgent care where x-rays were obtained suggestive of stress fracture. He was placed in a tall fracture boot and advised to minimize weightbearing and follow-up with orthopedics. He has been compliant. He states that since he has been wearing the boot he has had minimal pain. He has been running about 1 to 2 miles which is not out of the ordinary for him he has been running prior to the onset of pain as well. He denies numbness or tingling. He denies any twisting injuries or trauma. No other complaints at this time Physical exam: Well-appearing male in no acute distress found seated on the exam table. There is no erythema, ecchymosis, skin breaks or deformity noted throughout the right ankle or foot. I am unable to palpate davi to tenderness to palpation throughout the metatarsals. He has full range of motion of the ankle and foot. No pain with manipulation of the midfoot. Motor and sensory intact distally. Toes warm and well-perfused. Imaging: X-rays of the right foot reviewed today which demonstrate similar sclerotic bands on the fourth and fifth metatarsals consistent with impression from urgent care x-ray. I was unable to review the x-rays from the urgent care. There is no discrete cortical disruption or fracture. Impression: Stress reaction right fourth and fifth metatarsals Plan: - Weightbearing: Advance weightbearing as tolerated - Activity/Therapy: Activity modification to reduce pain, may slowly progress back into running if he remains pain free. Caution to avoid reinjury - Dressing/DME: May discontinue tall fracture boot. Continue to wear with supportive shoe - Pain control: Elevate affected extremity; apply ice to affected area; over the counter pain medication such as Tylenol or NSAID's - Follow up: As needed - X-ray at follow up: none Case discussed with Dr. Mcfadden Physical Findings - Vitals taken 05/26/2022 07:59 am BP-Sitting 143/79 mmHg Pulse Rate-Sitting 77 bpm Temp-Temporal 97.2 F Height 73 in Weight 170 lbs Body Mass Index 22.4 kg/m2 Body Surface Area 2 m2 Oxygen Saturation 99 % Plan StartCited - Stress fracture, right foot, initial encounter for fracture Follow Up/Appointment: PRN In House X-Rays/X-Rays: Foot, right, 3 views ([id number]) EndCited
--- OUTSIDE RECORDS SUMMARY | 2024-03-28 15:36 | XMS_ITS ---
Care Plan - [facility] Created on: March 28, 2024 Mike Simpson : 2000 Sex: Male Author Organization [facility] Address [address] [place] [address] Phone Care Team Providers Care Data Integration Architect Name Role Phone [facility], Unavailable Unavailable
--- OUTSIDE RECORDS SUMMARY | 2024-03-28 15:36 | XMS_ITS ---
Author Organization [facility] Address [address] [place] [address] Phone Care Team Providers Care Wet End Supervisor Name Role Phone [facility], Unavailable [phone] Plan of Treatment No Plan of Treatment Recorded Assessments Includes: Assessments for all patient encounters No Assessments Recorded Medical Equipment - Implanted Devices Includes: Current and historical Devices No Medical Equipment Recorded Medications Administered Includes: Administered Medications in patient's chart No Administered Medications Recorded Results Includes: Results from 03/28/2023 through 03/28/2024 No Results Recorded For Specified Dates History of Present Illness History of Present Illness not supported for this document type No History of Present Illness Recorded Social History No Social History Recorded - Smoking Status Unknown Medical History Includes: Medical History in patient's chart No Medical History Recorded Family History Includes: Family History in patient's chart No Family History Recorded Review of Systems Review of Systems not supported for this document type No Review of Systems Recorded Mental Status No Mental Status Recorded Functional Status No Functional Status Recorded Physical Exam Physical Exam not supported for this document type No Physical Exam Recorded Insurance Includes: Active Insurance Policies Plan Name Member ID Group # Subscriber Relationship Effect kelvin Dates 1 - Prime [id number] Mike Simpson Self Clinical Notes Includes: Signed Clinical Notes starting from 01/16/2022 No Clinical Notes Recorded
== END 2024-03-28 15:14 | disposition home or self-care (01) ==
PROVIDERS: PCP Physician Assistant; Visit Provider Physician Assistant
DX: R74.8 Abnormal levels of other serum enzymes (principal); Z13.1 Encounter for screening for diabetes mellitus

== ENCOUNTER → 2024-03-28 14:20 | Outpatient (BNVA) | payer OTHER, SELFPAY | PROVIDERS: PCP Physician Assistant; Visit Provider Physician Assistant | DX: R74.8 Abnormal levels of other serum enzymes (principal) | CPT/HCPCS: 96127; 99202 ==

== ENCOUNTER 2024-04-04 09:13 | Outpatient (REF) | payer OTHER, SELFPAY ==
[2024-04-04 09:59] LABS: Hematocrit 42.2 % (42.0-52.0); Hemoglobin 14.4 g/dl (14.0-18.0); Mean Corpuscular HGB Conc 34.1 g/dl (31.0-36.0); Mean Corpuscular Hemoglobin 29.9 pg (27.0-33.0); Mean Corpuscular Volume 87.6 fL (80.0-98.0); Mean Platelet Volume 9.6 fL (9.4-12.4); Platelet Count 193 X10*3/uL (160-400); Red Blood Count 4.82 X10*6/uL (4.60-5.80); White Blood Count 4.1 X10*3/uL (4.8-10.8)
[2024-04-04 10:37] LABS: Alanine Aminotransferase 16 U/L (0-40); Albumin Level 4.3 g/dL (3.5-5.0); Alkaline Phosphatase 59 U/L (39-117); Anion Gap 12 (12-20); Aspartate Amino Transferase 24 U/L (5-37); Bilirubin Total 0.3 mg/dL (0.0-1.0); Blood Urea Nitrogen 9 mg/dL (9-16); Calcium 9.2 mg/dL (8.4-10.2); Carbon Dioxide 27 mmol/L (22-29); Chloride 106 mmol/L (96-108); Estimated Glomerular Filt Rate > 60; Glucose Fasting 83 mg/dL (60-99); Potassium 3.9 mmol/L (3.3-5.1); Sodium 141 mmol/L (135-145); Total Protein 7.4 g/dL (6.5-8.0)
== END 2024-04-04 09:14 | disposition home or self-care (01) ==
LOC: HO.LAB 09:13
PROVIDERS: PCP Physician Assistant; Visit Provider Physician Assistant
DX: Z13.1 Encounter for screening for diabetes mellitus (principal)
CPT/HCPCS: 36415; 80053; 85027

== ENCOUNTER 2024-07-16 19:20 | Outpatient (REF) | payer OTHER, SELFPAY ==
--- NOTE | ~2024-07-16 | MR_ITS ---
EXAM: MRI of the right foot without contrast TECHNIQUE: Multiplanar multisequence MR imaging performed through the right foot. INDICATION: Intermittent foot pain, chronic PRIOR: None FINDINGS: Lisfranc ligament: The main Lisfranc ligament is intact. There is no joint diastases or widening. Soft tissues/Stephens's Neuroma: There is no evidence of Stephens's neuroma. There is no muscle edema, atrophy, or fatty streaking.. Metatarsophalangeal (MTP) joint and sesamoids of the great toe: Sesamoids demonstrate no marrow edema. The medial sesamoid is probably bipartite versus remotely fractured. Plantar plate is intact. Plantar plates & Lesser MTP joints: Plantar plates are intact. There are no degenerative changes. Bones/Marrow: On STIR sequences, there is high signal in the central distal end of the distal phalanx of the first digit, throughout the distal phalanx of the second digit, and centrally in the distal phalanx of the third digit, and distally in the fourth distal phalanx. There is also subtle increased signal on fluid sensitive sequences in the neck of the third metatarsal. On T1 imaging, there is subtle decreased signal in the same regions. There is no visible fracture line. MR/MR foot RT wo con IMPRESSION: Nonspecific marrow signal changes are present in the distal phalanges of the first, second, third, and fourth digit and third metatarsal neck. Signal could represent very mild bone bruise or atypical stress response. Correlate clinically to determine if symptoms are in these regions. If there are no symptoms in these regions, then the findings may be incidental. Electronically signed by: Demetrius Macias MD 07/17/2024 11:14 AM EDT
== END 2024-07-16 19:21 | disposition home or self-care (01) ==
LOC: HO.MRI 19:20
PROVIDERS: Visit Provider Physician Assistant
DX: M84.374S Stress fracture, right foot, sequela (principal)
CPT/HCPCS: 73718

== ENCOUNTER → 2024-07-16 19:31 | Outpatient (BNV) | payer OTHER, SELFPAY | PROVIDERS: Visit Provider Radiology Diagnostic Radiology | DX: M79.671 Pain in right foot (principal) | CPT/HCPCS: 73718 ==

== ENCOUNTER 2024-07-22 10:29 | Outpatient (AMB) | payer OTHER, SELFPAY ==
[2024-07-22 10:31] VITALS: BP 114/80; PULSE 91; TEMP 36.3; O2SAT 99; BMI 22.2
--- NOTE | 2024-07-22 10:31 | MHC.PC.OV ---
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 The patient reports a history of a stress fracture in the right foot that occurred a couple of years ago. Recently, he experienced similar symptoms and decided to stop activities to prevent further injury. An MRI was performed, revealing a possible bone bruise but no acute fracture. The MRI showed nonspecific marrow signal changes in the distal phalanges and metatarsal necks, suggesting a mild bone bruise or atypical stress response due to high running mileage. The patient is currently undergoing physical therapy, which he finds beneficial. He is eager to return to full duty and has been advised to continue physical therapy and consider seeing a quality assurance consultant for further evaluation and possible shoe inserts. MRI of the foot showing-->Nonspecific marrow signal changes are present in the distal phalanges of the first, second, third, and fourth digit and third metatarsal neck. 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 Cognitive needs: No Hearing needs: No Vision needs: No Questionnaire Thrive Questionnaire Date Thrive assessed: 03/22/24 I am a: Patient What is your living situation today?: I have a steady place to live Within the past 12 months, did the food you bought not last and you didn't have the money to get more?: Never true Within the past 12 months, did you worry whether your food would run out before you got money to buy more?: Never true Do you have trouble paying for medicines?: No Do you have trouble getting transportation to medical appointments?: No Do you have trouble paying your heating and electricity bill?: No Do you have trouble taking care of your child, family member or friend?: No Do you have trouble with day-to-day activities such as bathing, preparing meals, shopping, managing finances, etc.?: No Are you currently unemployed and looking for a job?: No Are you interested in more education?: No Please select the resources that you would like help with: None Currently or been in a relationship where the following occur: No concerns reported THRIVE Score: 0 VERO-7 AMB Questionnaire VERO-7 Date VERO - 7 assessed: 03/28/24 Source: Developed by Drs. Vlad Gibson, Blanca Hensley, Odin Tidwell and colleagues, with an educational ryan from [employer]. Review of Systems Const Denies headache(s) Eyes Denies loss of vision ENT Denies vertigo, Denies dizziness, Denies headache(s) and Denies sore throat Card Denies chest pain, Denies leg edema and Denies lightheadedness Resp Denies cough, Denies hemoptysis and Denies wheezing GI Denies abdominal pain, Denies melena, Denies constipation, Denies diarrhea and Denies vomiting Denies dysuria, Denies urinary frequency and Denies urinary urgency Musc Denies arthralgias, Denies joint swelling, Denies numbness and Denies tingling Neuro Denies Abnormal speech present, Denies behavioral changes, Denies vertigo, Denies dizziness, Denies headache(s), Denies loss of vision, Denies memory loss, Denies numbness and Denies tingling Psych Denies anxiety, Denies behavioral changes, Denies depression, Denies memory loss and Denies panic attacks Rolo/Lymph Denies easy bleeding and Denies easy bruising Aller/Immun Denies wheezing Physical exam (Primary Care) Vital Signs: Last Vital Signs Temp 97.3 F 07/22/24 10:31 Pulse 91 07/22/24 10:31 BP 114/80 07/22/24 10:31 Pulse Ox 99 07/22/24 10:31 Oxygen Delivery Method Room Air 07/22/24 10:31 BMI result Body Mass Index 22.2 Tobacco/Smoking Status: Tobacco use Status Tobacco use date assessed 03/28/24 07/22/24 10:31 Patient Tobacco Use Status Never used Tobacco 07/22/24 10:31 e-Cigarette/Vaping Use Never Used 07/22/24 10:31 Thrive Assessment: Date of Thrive Assessment Date Thrive assessed 03/22/24 07/22/24 10:31 Currently or been in a relationship where the following occur: No concerns reported Const General: healthy appearing, no acute distress, alert and awake Nutritional Appearance: well nourished Orientation/consciousness: oriented to person, oriented to place and oriented to time HENMT Ears: TM's normal bilaterally General nose exam: Normal nasal mucous membranes and turbinates present Eyes Conjunctivae: conjunctivae normal Sclerae: sclerae normal Pupils: Equal, round and reactive pupils present Neck Neck: Yes no lymphadenopathy and Yes no JVD Thyroid: Thyroid normal Carotids: no bruits Resp Effort & Inspection: normal respiratory effort and not tachypneic Auscultation: no crackles, no rales, no rhonchi and no wheezes Cardio Rate: regular rate Rhythm: regular rhythm Heart sounds: no murmurs and normal S1 and S2 GI Palpation (GI): Soft to palpation, nontender, no hepatomegaly and no splenomegaly Auscultation: normal bowel sounds Skin General skin exam: no rashes or lesions noted and dry skin Neuro General: oriented to person, oriented to place and oriented to time Cranial nerves: Yes Equal, round and reactive pupils present Speech: No Abnormal speech present Gait exam (Neuro): Normal gait present Motor exam (neuro): no tremor noted Extrem Right upper extremity: full ROM Left upper extremity: full ROM Right lower extremity: full ROM; no edema Left lower extremity: full ROM; no edema Psych Mental Status: mental status grossly normal Speech and movement: Normal speech and movement present Affect: normal affect Attitude: cooperative Thought process: Normal thought process present Coding Level of Care Code Est Pt Level 3 (43072) Diagnoses Stress fracture, right foot, sequela M84.374S Assessment & Plan Assessment & Plan (1) Stress fracture, right foot, sequela: Code(s): M84.374S - Stress fracture, right foot, sequela Category: Medical Plan: The MRI findings suggest a mild bone bruise, and the patient is cleared to return to full duty as he feels ready and has no medical contraindications. Continued monitoring and physical therapy are advised to ensure full recovery and prevent recurrence.
== END 2024-07-22 10:50 | disposition home or self-care (01) ==
LOC: HO.HMCH 10:30
PROVIDERS: Visit Provider Physician Assistant
DX: M84.374S Stress fracture, right foot, sequela (principal)

== ENCOUNTER → 2024-07-22 10:29 | Outpatient (BNVA) | payer OTHER, SELFPAY | PROVIDERS: Visit Provider Physician Assistant | DX: M84.374S Stress fracture, right foot, sequela (principal) | CPT/HCPCS: 99212 ==

== ENCOUNTER 2024-08-07 09:00 | Outpatient (RCR) | payer OTHER, SELFPAY ==
--- NOTE | 2024-07-10 13:33 | MHC.PT.EP ---
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 HE NOTED HE HAD A PREVIOUS Rt 5TH MET INJURY IN 2022 AND WAS ISSUED A WALKIING BOOT, WHICH HE IS RESUMING NOW. OBJECTIVE FINDINGS: ALTERED GAIT, DECR HIP/ HS FLEXIB, DECR ROM PROMISE DF AND EVER, DECR PROPRIOCEPTION Rt > Lt ANKLE/LE, STRENGTH DEFICITS Rt > Lt EVERTORS, AND (+) LUMBOPELVIC ASYMM. HE HAS TTP Rt PROX 5TH MET / JUNCTION W CUBOID- FUNCTIONALLY, HE HAS DECR WALKING/WEIGHT BEARING W/O BOOT / SQUATTING AMEYA, DECR AMEYA W TASKS REQ EVERSION EFFORT.. THE Pt HAS BEEN ENCOURAGED TO PURSUE HIS XR REPORT TO PROVIDE COREY HEMPHILL,PAC AND PT WITH MORE INJURY SPECIFIC DETAILS FOR HIS POC. Frequency and Duration: The patient will be seen 2 x WK x 5 WKS Short Term Goals: DECR Rt LAT FOOT PAIN TO 1-2/10 IMPROVE PROMISE ANKLE AROM, LEs FLEXIB, LUMBOPELVIC SYMMETRY INITIATE HEP [employer] Goals: Pt INDEP HEP AND SELF SX MGMT TECHN IMPROVED STRENGTH IN RT EVERTORS-> WFL FUNCTIONAL SQUAT MECHANICS Pt INITIATE A WALK-> JOG-> RETURN TO RUNNING PGM W/O EXACERBATION OF SXS IMPROVED LEFI, AT EVAL 63/80 Treatment Plan: Modalities to reduce pain, spasms and effusion. Manual therapy to restore motion and function. Therapeutic exercise to improve strength and flexibility. Neuromuscular re-education for posture and balance. Therapeutic activities to return to functional activities of daily living. Electronically signed by: REYMUNDO CRESPO,PT Please sign and return to therapist. Thank you for your referral.
--- NOTE | 2024-08-07 11:08 | MHC.PT.DC ---
[facility] [place] Office [place] Office [place] Office [address] Nikko Gagnon [address] [phone] F: [phone] F: [phone] F: [phone] F: [phone] Physical Therapy Discharge Report Diagnosis: STRESS FRACTURE RIGHT FOOT Date of Surgery: Date of Evaluation: 07/09/24 Date of Discharge: 08/07/24 Treatments to Date: 7 Cancellations to Date: 2 No Shows to Date: Discharge Status: Achieved Goals Improved Function Independent with HEP Discharge Summary: MAYA HAS PROGR WELL IN PT FOR Rt FOOT STRESS FX, HE HAS MET HIS PT GOALS AT THIS TIME AND HAS BEEN ABLE TO RESUME REG ADLs. 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 HIS LEFI AT EVAL WAS 63/80 AND AT DISCHARGE TODAY, 80/80 Electronically signed by: REYMUNDO CRESPO,PT Please sign and return to therapist. Thank you for your referral.
== END 2024-08-07 11:09 | disposition home or self-care (01) ==
LOC: HO.PT 09:00
PROVIDERS: PCP Physician Assistant; Visit Provider Physician Assistant
DX: M84.374S Stress fracture, right foot, sequela (principal)
CPT/HCPCS: 97110; 97112; 97162